=== PATIENT | male | born 1965 | race Caucasian/White ===

== ENCOUNTER 2023-07-30 07:01 | Day surgery (SDC) | payer OTHER ==
[~2023-07-30] VITALS: Ht 167.6 cm; Wt 81.8 kg
[~2023-07-30 07:01] MED LIST: FURO20 PO; METO25CA PO; MIDO5TAB29 PO; PANT-31 PO; SODIUM CHLORIDE 0.9% 1,000 ML ONE; SPIR50TA27 PO
[2023-07-30] MEDS: SODIUM CHLORIDE 0.9% 1,000 ML IV ONE (07:59)
[2023-07-30] MEDS ORDERED: PROPOFOL 1% 20 ML VIAL IVP ONE (12:00)
[2023-07-30] MEDS ORDERED: LIDOCAINE/PF 2% 5 ML VIAL IM ONE (12:00)
[2023-07-30] MEDS ORDERED: GLYCOPYRROLATE 0.2 MG/ML VIAL IM ONE (12:00)
== END 2023-07-30 10:45 | disposition home or self-care (01) ==
LOC: SURGERY 07:01
PROVIDERS: ATTEND Internal Medicine Gastroenterology
DX: K31.7 Polyp of stomach and duodenum (principal); K25.9 Gastric ulcer, unspecified as acute or chronic, without hemorrhage or perforation; K74.60 Unspecified cirrhosis of liver; I10 Essential (primary) hypertension; F10.10 Alcohol abuse, uncomplicated; Z79.899 Other long term (current) drug therapy
CPT/HCPCS: 43239; C1769; J2704; J3490 ×2; J7030; 88305; 88312; 88313